=== PATIENT | female | born 1985 | race Caucasian/White ===

== ENCOUNTER 2016-07-11 10:24 | Emergency (ER) | payer OTHER ==
[2016-07-11 11:01] VITALS: BP 120/62; PULSE 76; TEMP 98.3; BMI 30.7
[2016-07-11 11:30] LABS: URINE APPEARANCE CLEAR; URINE BILIRUBIN NEGATIVE (NEGATIVE); URINE COLOR LTYELLOW; URINE GLUCOSE (UA) NEGATIVE (NEGATIVE); URINE KETONE NEGATIVE (NEGATIVE); URINE LEUK ESTERASE NEGATIVE (NEGATIVE); URINE NITRITE NEGATIVE (NEGATIVE); URINE PROTEIN NEGATIVE (NEGATIVE); URINE UROBILINOGEN NEGATIVE E.U./dl (0.2-1.0)
[2016-07-11 11:31] LABS: URINE BLOOD 1+ (NEGATIVE)
--- NOTE | 2016-07-11 11:47 | PDOC ---
History of Present Illness - General Chief Complaint: Urinary Problem Stated Complaint: STD TESTING Time Seen by Provider: 07/11/16 11:18 History Source: Patient Exam Limitations: No Limitations - History of Present Illness Travel History: No Initial Comments: 07/11/16 11:44 31-year-old female presents to the emergency department with complaints of urinary frequency, dysuria, and mild mid suprapubic pressure for the past 3 days. Patient states was also treated for Trichomonas last month by her PCP and completed antibiotics. Patient has no complaints of vaginal discharge, irregular menses, or fever. Patient also denies dyspareunia or history of ovarian cyst. Timing/Duration: reports: intermittent Quality: reports: mild, cramping Abdominal Pain Onset Location: reports: suprapubic (mid) Pain Radiation: reports: no radiation Activities at Onset: reports: none Aggravating Factors: improves with: Voiding Alleviating Factors: improves with: None Past History - Past Medical History Allergies/Adverse Reactions: Allergies Allergy/AdvReac Type Severity Reaction Status Date / Time No Known Allergies Allergy Verified 07/11/16 10:56 Home Medications: Ambulatory Orders NK [No Known Home Medication] 07/11/16 Other medical history: DENIES. - Reproductive History LMP Normal: Yes Is Patient Now?: No - Psycho/Social/Smoking Cessation Hx Suicidal Ideation: No Smoking History: Never smoked Patient Lives Alone: No Lives with/in: parents Review of Systems - Review of Systems Able to Perform ROS?: Yes Constitutional: No: Symptoms Reported HEENTM: No: Symptoms Reported Respiratory: No: Symptoms reported Cardiac (ROS): No: Symptoms Reported ABD/GI: Yes: Abdominal cramping (mid mild intermittent). No: Constipated, Diarrhea, Nausea, Poor Appetite, Poor Fluid Intake, Vomiting : Yes: Dysuria, Frequency. No: Burning, Discharge, Hematuria Musculoskeletal: No: Back Pain Integumentary: No: Rash Neurological: No: Headache *Physical Exam - Vital Signs Last Vital Signs Temp Pulse Resp BP Pulse Ox 98.3 F 76 19 120/62 98 07/11/16 10:57 07/11/16 10:57 07/11/16 10:57 07/11/16 10:57 07/11/16 10:57 - Physical Exam General Appearance: Yes: Nourished, Appropriately Dressed, Apparent Distress HEENT: positive: EOMI, Pharynx Normal Neck: positive: Normal Thyroid Female Pelvic Exam: positive: normal external exam. negative: discharge, vaginal bleeding Gastrointestinal/Abdominal: positive: Normal Bowel Sounds, Soft, Tenderness ( mild). negative: Distended, Guarding, Rebound Musculoskeletal: negative: CVA Tenderness Extremity: positive: Normal Capillary Refill Integumentary: positive: Normal Color, Warm, Moist Neurologic: positive: Motor Strength 5/5 (Ambulatory) ED Treatment Course - ADDITIONAL ORDERS Additional order review: Laboratory Results 07/11/16 11:10 Urine Color Ltyellow Urine Appearance Clear Urine pH 7.0 Ur Specific [place] 1.020 Urine Protein Negative Urine Glucose (UA) Negative Urine Ketones Negative Urine Blood 1+ H Urine Nitrite Negative Urine Bilirubin Negative Urine Urobilinogen Negative Ur Leukocyte Esterase Negative Urine HCG, Qual Negative Medical Decision Making - Medical Decision Making 07/11/16 11:38 Patient with urinary complaints of the past few days patient also wants to be tested for Trichomonas since she was treated for this one month ago and completed antibiotics but wants to make sure it is gone although she states no testing was done at her doctor's office at that time. Patient on exam had no vaginal discharge had mild mid suprapubic tenderness patient ordered for urinalysis urine urine culture, GC chlamydia and Trichomonas. 07/11/16 11:50 Laboratory Tests 07/11/16 07/11/16 11:10 11:10 Urine Ketones Negative Urine Blood 1+ H Ur Leukocyte Esterase Negative Urine HCG, Qual Negative Chlamydia Competition Pending N. gonorrhoeae (SHERI) Pending 07/11/16 12:09 Although patient's urine shows no sign of urinary tract infection patient is here with her sexual partner who is also here for STD testing but denies any complaints pertaining to the diagnosis. Patient does want to be treated for "everything " and so does her partner. Patient will be treated for gonorrhea and chlamydia. *DC/Admit/Observation/Transfer Diagnosis at time of Disposition: Dysuria, Suprapubic tenderness, Concern about sexually transmitted disease in female without diagnosis - Discharge Dispostion Disposition: HOME Condition at time of disposition: Good - Referrals Referrals: Michael Dominique [Primary Care Provider] - - Patient Instructions Printed Discharge Instructions: How to Detect and Treat STDs Additional Instructions: Today you have been treated for gonorrhea and chlamydia without the diagnosis but please follow instructions in regards to abstinence of sexual intercourse for the next 7 days. If you would like to get your results in the next 7 days you may call [phone].
[2016-07-11 11:54] LABS: URINE MUCUS RARE; URINE RBC 4 /hpf (0-3); URINE WBC <1 /hpf (3-5)
[2016-07-11] MEDS ORDERED: AZITHROMYCIN 1 GM PACKET PO ONE (12:13)
[2016-07-11] MEDS ORDERED: AZITHROMYCIN 1 GM PACKET ONE (12:19)
== END 2016-07-11 12:37 | disposition home or self-care (01) ==
LOC: JERFT 10:24
DX: Z11.3 Encounter for screening for infections with a predominantly sexual mode of transmission (principal)
CPT/HCPCS: 36415; 81003; 81015; 84703; 87086; 87491; 87591; 87661; 99281-25